=== PATIENT | male | born 1975 | race African-American/Black ===

== ENCOUNTER 2018-09-12 15:49 | Inpatient (IN) | payer OTHER ==
[2018-09-12 18:23] VITALS: BMI 19.8
--- NOTE | 2018-09-12 20:13 | HP ---
CIWA Score Nausea/Vomitin Muscle Tremors: 1-None Visible, but [place] Anxiety: 1-Mildly Anxious Agitation: 4-Moderately Restless Paroxysmal Sweats: No Perspiration Orientation: 2-Disoriented Date<2 days Tacttile Disturbances: 0-None Auditory Disturbances: 0-None Visual Disturbances: 2-Mild Sensitivity Headache: 4-Moderately Severe CIWA-Ar Total Score: 19 - Admission Criteria OAS Guidelines: Admission for Medically Managed Detox: Requires at least one of the followin. CIWA greater than 12 2. Seizures within the past 24 hours 3. Delirium tremens within the past 24 hours 4. Hallucinations within the past 24 hours 5. Acute intervention needed for co occurring medical disorder 6. Acute intervention needed for co occurring psychiatric disorder 7. Severe withdrawal that cannot be handled at a lower level of care (continued vomiting, continued diarrhea, abnormal vital signs) requiring intravenous medication and/or fluids 8. Patient presents the following: CIWA greater than 12 Admission Criteria Met: Admission criteria met Admission ROS [facility] Chief Complaint: C/O WORSENING WITHDRAWAL SX'S. SEEKING DETOX Allergies/Adverse Reactions: Allergies Allergy/AdvReac Type Severity Reaction Status Date / Time No Known Allergies Allergy Verified 09/12/18 18:15 History of Present Illness: 43.Y.O. MALE WITH HX/O ALCOHOLISM HERE FOR DETOX. CLIENT IS REFERRED BY A FRIEND AFTER RELAPSING 1 WEEK AGO. HE STATES HE HAS BEEN ABSTINENT FOR THE PAST 4 MONTHS. FOR THE FPAST 1` WEEK CLINET REPORTS DRINKING A FIFTH OF VODKA DAILY. LAST DRINK 1 DAY AGO. NOW HERE C/O WORSENING WITHDRAWAL SX'S CIWA 19 SEEKING DETOX. "I AM AFRAID zi AM GOING TO HAVE A SEIZURE". HX/O WITHDRAWAL SZ, DENIES DT'S, SI/HI/AVH. LONGEST CLEAN TIME IS THE PAST 4 MONTHS. HE RESIDES AT [facility] RESIDENTIAL [facility], UNEMPLOYED, DENIES LEGALS. PMHX-DENIES PSYCH- DENIES Exam Limitations: No Limitations - Ebola screening Have you traveled outside of the country in the last 21 days: No Have you had contact with anyone from an Ebola affected area: No Do you have a fever: No - Review of Systems Constitutional: Loss of Appetite, Night Sweats, Changes in sleep, Unintentional Wgt. Loss EENT: reports: Dental Problems (MISSING TEETH- PATIAL UPPER DENTURES) Respiratory: reports: No Symptoms reported Cardiac: reports: No Symptoms Reported GI: reports: Poor Appetite, Poor Fluid Intake, Vomiting : reports: No Symptoms Reported Musculoskeletal: reports: No Symptoms Reported Integumentary: reports: No Symptoms Reported Neuro: reports: Headache, Seizure (R/T ALCOHOL WITHDRAWAL), Tremors Endocrine: reports: No Symptoms Reported Hematology: reports: No Symptoms Reported Psychiatric: reports: Agitated (IRRITABLE), Depressed (DENIES SI) Other Systems: Reviewed and Negative Patient History - Patient Medical History Hx Anemia: No Hx Asthma: No Hx Chronic Obstructive Pulmonary Disease (COPD): No Hx Cancer: No Hx Cardiac Disorders: No Hx Congestive Heart Failure: No Hx Hypertension: No Hx Hypercholesterolemia: No Hx Pacemaker: No HX Cerebrovascular Accident: No Hx Seizures: Yes (R/T WITHDRAWAL SZ FROM ALCOHOL 05/2018) Hx Dementia: No Hx Diabetes: No Hx Gastrointestinal Disorders: No Hx Liver Disease: No Hx Genitourinary Disorders: No Hx Sexually Transmitted Disorders: No Hx Renal Disease (ESRD): No Hx Thyroid Disease: No Hx Human Immunodeficiency Virus (HIV): No Hx Hepatitis C: No Hx Depression: No Hx Suicide Attempt: No Hx Bipolar Disorder: No Hx Schizophrenia: No Other Medical History: DENIES - Patient Surgical History Past Surgical History: No - PPD History Previous Implant?: Yes Documented Results: Negative w/o proof Implanted On Prior [facility] Admission?: No PPD to be Administered?: Yes - Smoking Cessation Smoking history: Current every day smoker Have you smoked in the past 12 months: Yes Aproximately how many cigarettes per day: 5 Cigars Per Day: 0 Hx Chewing Tobacco Use: No Initiated information on smoking cessation: Yes 'Breaking Loose' booklet given: 09/12/18 - Substance & Tx. History Hx Alcohol Use: Yes Hx Substance Use: Yes Substance Use Type: Alcohol Hx Substance Use Treatment: Yes ([facility]) - Substances abused Alcohol Substance route: Oral Frequency: Daily Amount used: FIFTH Age of first use: 12 (RELAPSE 1 WEEK AGO AFTER 4 MONTHS CLEAN) Date of last use: 09/12/18 Family Disease History - Family Disease History Family Disease History: Other: Father (ALCOHOLISM), Mother (ALCOHOLISM) Admission Physical Exam [facility] - Vital Signs Vital Signs: Vital Signs - 24 hr 09/12/18 09/12/18 18:15 19:14 Temperature 98.3 F 98.3 F Pulse Rate 88 88 Respiratory 16 16 Rate Blood Pressure 124/73 124/73 - Physical General Appearance: Yes: Mild Distress, Cachetic (FRAIL), Tremorous (FELT), Irritable HEENTM: Yes: EOMI, Normocephalic, Normal Voice, WILLIAM, Pharynx Normal, Other ( POOR DENTITION) Respiratory: Yes: Chest Non-Tender, Lungs Clear, Normal Breath Sounds, No Respiratory Distress, No Accessory Muscle Use Neck: Yes: No masses,lesions,Nodules, Supple, Trachea in good position Breast: Yes: Breast Exam Deferred Cardiology: Yes: Regular Rhythm, S1, S2, Tachycardia Abdominal: Yes: Normal Bowel Sounds, Non Tender, Flat, Soft, Tenderness (LLQ) Genitourinary: Yes: Within Normal Limits Back: Yes: Normal Inspection Musculoskeletal: Yes: full range of Motion, Gait Steady Extremities: Yes: Normal Range of Motion, Non-Tender, Tremors (FELT) Neurological: Yes: Alert, Motor Strength 5/5, Depressed Affect Integumentary: Yes: Dry, Warm Lymphatic: Yes: Within Normal Limits - Diagnostic (1) Alcohol dependence with uncomplicated withdrawal Current Visit: Yes Status: Acute (2) Nicotine dependence Current Visit: Yes Status: Chronic Qualifiers: Nicotine product type: cigarettes Substance use status: uncomplicated Qualified Code(s): F17.210 - Nicotine dependence, cigarettes, uncomplicated (3) At risk for dehydration due to poor fluid intake Current Visit: Yes Status: Acute (4) Alcohol withdrawal seizure Current Visit: Yes Status: Suspected Qualifiers: Complication of substance-induced condition: uncomplicated Qualified Code(s ): F10.230 - Alcohol dependence with withdrawal, uncomplicated Comment: REPORTED HX (5) Depressed affect Current Visit: Yes Status: Acute (6) Homeless Current Visit: Yes Status: Suspected (7) Substance induced mood disorder Current Visit: Yes Status: Acute Cleared for Admission S - Detox or Rehab [facility] Level of Care: Medically Managed Detox Regimen/Protocol: Librium Claeared for Rehab Admission: No Breathalyzer - Breathalyzer Breathalyzer: 0.132 Urine Drug Screen - Test Device Lot number: [id number] Expiration date: 06/12/20 - Control Is test valid?: Yes - Results Drug screen NEGATIVE: Yes Inpatient Rehab Admission - Rehab Decision to Admit Inpatient rehab admission?: No
[2018-09-12] MEDS ORDERED: ACETAMINOPHEN 325 MG TABLET (FP) PO PRN ×2 (20:19)
[2018-09-12] MEDS ORDERED: METHOCARBAMOL 500 MG TABLET PO PRN (20:19)
[2018-09-12] MEDS ORDERED: DICYCLOMINE HCL 10 MG CAPSULE PO PRN (20:19)
[2018-09-12] MEDS ORDERED: chlordiazePOXIDE HCL 10 MG CAPSULE PO PRN (20:19)
[2018-09-12] MEDS ORDERED: ONDANSETRON *ODT* 4 MG TABLET SL PRN (20:19)
[2018-09-12] MEDS ORDERED: NICOTINE POLACRILEX 2 MG GUM BUC PRN (20:19)
[2018-09-12] MEDS ORDERED: P-EPHED 60MG/TRIPROLIDI 2.5MG TABLET PO PRN (20:19)
[2018-09-12] MEDS ORDERED: MAGNESIUM CITRATE 300 ML BOTTLE PO PRN (20:19)
[2018-09-12] MEDS ORDERED: MENTHOL/PHENOL 1 EACH UD MM PRN (20:19)
[2018-09-12] MEDS ORDERED: guaiFENesin 200 MG/10 ML 10 ML UNIT-DOSE CUPS PO PRN (20:19)
[2018-09-12] MEDS ORDERED: MAGNESIUM HYDROX 2400MG/30ML ORAL SUSPENSION 30 ML CUP PO PRN (20:19)
[2018-09-12] MEDS ORDERED: MELATONIN 5 MG TABLETS PO PRN (20:19)
[2018-09-12] MEDS ORDERED: MAG HYDROX/AL HYDROX/SIMETH 30 ML UNIT-DOSE CUP PO PRN (20:19)
[2018-09-12] MEDS ORDERED: IBUPROFEN 400 MG TABLET (FP) PO PRN (20:19)
[2018-09-12] MEDS ORDERED: BISMUTH SUBSALICYLATE 524 MG/30 ML UD PO PRN (20:19)
[2018-09-12] MEDS ORDERED: hydrOXYzine PAMOATE 25 MG CAPSULE (FP) PO PRN (20:19)
[2018-09-12] MEDS: THIAMINE HCL 100 MG TABLET (FP) PO SCH (21:37)
[2018-09-12] MEDS: chlordiazePOXIDE HCL 25 MG CAPSULE PO SCH (21:38)
[2018-09-13] MEDS: chlordiazePOXIDE HCL 25 MG CAPSULE PO SCH ×3 (06:04→22:05)
[2018-09-13] MEDS ORDERED: PRENATAL VITAMINS W/ FOLIC ACID TABLET (FP) PO SCH (10:00)
[2018-09-13] MEDS ORDERED: NICOTINE 14 MG/24 HOURS TOPICAL PATCH TD SCH (10:00)
[2018-09-13 11:54] LABS: HEMATOCRIT 37.8 % (35.4-49); HEMOGLOBIN 12.7 GM/dL (11.7-16.9); MCH 30.2 pg (25.7-33.7); MCHC 33.7 g/dl (32.0-35.9); MEAN CELL VOLUME 89.6 fl (80-96); MEAN PLT VOLUME 7.8 fl (7.5-11.1); PLATELET COUNT 294 K/MM3 (134-434); RBC 4.22 M/mm3 (4.00-5.60)
[2018-09-13 12:09] LABS: ALBUMIN 3.7 g/dl (3.4-5.0); BILIRUBIN,TOTAL 0.7 mg/dL (0.2-1); BLOOD UREA NITROGEN 11.7 mg/dL (7-18); CALCIUM 8.8 mg/dL (8.5-10.1); CREATININE 0.8 mg/dL (0.55-1.3); POTASSIUM 3.9 mmol/L (3.5-5.1)
--- NOTE | 2018-09-13 14:15 | EKG ---
Test Reason : Blood Pressure : / mmHG Vent. Rate : 081 BPM Atrial Rate : 081 BPM P-R Int : 160 ms QRS Dur : 106 ms QT Int : 340 ms P-R-T Axes : 064 -08 058 degrees QTc Int : 394 ms SINUS RHYTHM WITH MARKED SINUS ARRHYTHMIA OTHERWISE NORMAL ECG NO PREVIOUS ECGS AVAILABLE Confirmed by JUAN MIGUEL HANNAH, RU ([id number]) on 09/13/2018 2:15:40 PM Referred By: Confirmed By:RU BULLARD MD
--- NOTE | 2018-09-13 14:35 | PN ---
S CIWA - CIWA Score Nausea/Vomitin-Mild Nausea/No Vomiting Muscle Tremors: 3 Anxiety: 3 Agitation: 3 Paroxysmal Sweats: 1-Minimal Palms Moist Orientation: 0-Oriented Tacttile Disturbances: 1-Very Mild Itch/Numbness Auditory Disturbances: 0-None Visual Disturbances: 0-None Headache: 2-Mild CIWA-Ar Total Score: 14 S Progress Note (SOAP) Subjective: 43 years old male admitted on 09/12/18 for acute alcohol withdrawal sx management doing well with librium detox regimen feeling better today less tremor ambulating on hallway social with peers in day room discuss aftercare the he will return to his residential facility for alcohol recovery Objective: 09/13/18 14:37 Vital Signs Temperature 98.6 F 09/13/18 13:05 Pulse Rate 96 H 09/13/18 13:05 Respiratory Rate 18 09/13/18 13:05 Blood Pressure 131/76 09/13/18 13:05 O2 Sat by Pulse Oximetry (%) Laboratory Last Values WBC 6.0 K/mm3 (4.0-10.0) 09/13/18 07:30 RBC 4.22 M/mm3 (4.00-5.60) 09/13/18 07:30 Hgb 12.7 GM/dL (11.7-16.9) 09/13/18 07:30 Hct 37.8 % (35.4-49) 09/13/18 07:30 MCV 89.6 fl (80-96) 09/13/18 07:30 MCH 30.2 pg (25.7-33.7) 09/13/18 07:30 MCHC 33.7 g/dl (32.0-35.9) 09/13/18 07:30 RDW 14.0 % (11.9-15.9) 09/13/18 07:30 Plt Count 294 K/MM3 (134-434) 09/13/18 07:30 MPV 7.8 fl (7.5-11.1) 09/13/18 07:30 Sodium 145 mmol/L (136-145) 09/13/18 07:30 Potassium 3.9 mmol/L (3.5-5.1) 09/13/18 07:30 Chloride 108 mmol/L (98-107) H 09/13/18 07:30 Carbon Dioxide 30 mmol/L (21-32) 09/13/18 07:30 Anion Gap 7 MMOL/L (8-16) L 09/13/18 07:30 BUN 11.7 mg/dL (7-18) 09/13/18 07:30 Creatinine 0.8 mg/dL (0.55-1.3) 09/13/18 07:30 Est GFR (CKD-EPI)AfAm 125.92 09/13/18 07:30 Est GFR (CKD-EPI)NonAf 108.65 09/13/18 07:30 Random Glucose 79 mg/dL (74-106) 09/13/18 07:30 Calcium 8.8 mg/dL (8.5-10.1) 09/13/18 07:30 Total Bilirubin 0.7 mg/dL (0.2-1) 09/13/18 07:30 AST 23 U/L (15-37) 09/13/18 07:30 ALT 25 U/L (13-61) 09/13/18 07:30 Alkaline Phosphatase 95 U/L (45-117) 09/13/18 07:30 Total Protein 7.0 g/dl (6.4-8.2) 09/13/18 07:30 Albumin 3.7 g/dl (3.4-5.0) 09/13/18 07:30 RPR Titer Nonreactive (NONREACTIVE) 09/13/18 07:30 lab noted Assessment: 09/13/18 14:37 alcohol withdrawal sx Plan: continue alcohol detox
--- NOTE | 2018-09-13 16:09 | CONSULT ---
[facility] Psychiatric Consult - Data Date of interview: 09/13/18 Identifying data: Rod Buster Helper approached for psychiatric consultation. 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 I do not take psych medications." Psychiatric consultation refused.
[2018-09-13] MEDS: THIAMINE HCL 100 MG TABLET (FP) PO SCH (22:05)
[2018-09-14 00:53] LABS: EPI CELLS 3.3 /HPF (0-5/HPF); HYALINE CASTS 11 /lpf (0-8); PH,URINE >= 9.0 (5.0-8.0); URINE APPEARANCE CLOUDY; URINE BACTERIA 1.7 /hpf (NEGATIVE); URINE BILIRUBIN NEGATIVE (NEGATIVE); URINE COLOR YELLOW; URINE GLUCOSE (UA) NEGATIVE (NEGATIVE); URINE KETONE NEGATIVE (NEGATIVE); URINE LEUK ESTERASE NEGATIVE (NEGATIVE); URINE NITRITE NEGATIVE (NEGATIVE); URINE PROTEIN 2+ (NEGATIVE); URINE WBC 1 /hpf (0-5)
[2018-09-14 02:42] LABS: URINE RBC 3 /hpf (0-4); YEAST 1+ (NEGATIVE)
[2018-09-14] MEDS ORDERED: chlordiazePOXIDE 5 MG CAPSULE PO SCH (05:00)
[2018-09-14 09:50] VITALS: BP 119/69; PULSE 93; TEMP 97.2
--- NOTE | 2018-09-14 18:53 | PN ---
S CIWA - CIWA Score Nausea/Vomitin-No Nausea/No Vomiting Muscle Tremors: 2 Anxiety: 0-No Anxiety, at Ease Agitation: 1-Slight > Activity Paroxysmal Sweats: 2 Orientation: 0-Oriented Tacttile Disturbances: 1-Very Mild Itch/Numbness Auditory Disturbances: 0-None Visual Disturbances: 0-None Headache: 0-None Present CIWA-Ar Total Score: 6 BHS Progress Note (SOAP) Subjective: Sweating, Tremors. Objective: PATIENT A & O X 3, OBSERVED AMBULATING ON UNIT UNASSISTED. IN NO ACUTE DISTRESS. 09/14/18 18:54 Vital Signs Temperature 97.2 F L 09/14/18 09:50 Pulse Rate 93 H 09/14/18 09:50 Respiratory Rate 18 09/14/18 09:50 Blood Pressure 119/69 09/14/18 09:50 O2 Sat by Pulse Oximetry (%) Laboratory Tests 09/13/18 09/13/18 09/13/18 07:30 07:30 07:30 WBC 6.0 RBC 4.22 Hgb 12.7 Hct 37.8 MCV 89.6 MCH 30.2 MCHC 33.7 RDW 14.0 Plt Count 294 MPV 7.8 Sodium 145 Potassium 3.9 Chloride 108 H Carbon Dioxide 30 Anion Gap 7 L BUN 11.7 Creatinine 0.8 Est GFR (CKD-EPI)AfAm 125.92 Est GFR (CKD-EPI)NonAf 108.65 Random Glucose 79 Calcium 8.8 Total Bilirubin 0.7 AST 23 ALT 25 Alkaline Phosphatase 95 Total Protein 7.0 Albumin 3.7 Urine Color Urine Appearance Urine pH Ur Specific [place] Urine Protein Urine Glucose (UA) Urine Ketones Urine Blood Urine Nitrite Urine Bilirubin Urine Urobilinogen Ur Leukocyte Esterase Urine WBC (Auto) Urine RBC (Auto) Urine Casts (Auto) U Epithel Cells (Auto) Urine Bacteria (Auto) Urine Yeast (Auto) RPR Titer Nonreactive 09/13/18 14:37 WBC RBC Hgb Hct MCV MCH MCHC RDW Plt Count MPV Sodium Potassium Chloride Carbon Dioxide Anion Gap BUN Creatinine Est GFR (CKD-EPI)AfAm Est GFR (CKD-EPI)NonAf Random Glucose Calcium Total Bilirubin AST ALT Alkaline Phosphatase Total Protein Albumin Urine Color Yellow Urine Appearance Cloudy Urine pH >= 9.0 H Ur Specific [place] 1.033 Urine Protein 2+ H Urine Glucose (UA) Negative Urine Ketones Negative Urine Blood Negative Urine Nitrite Negative Urine Bilirubin Negative Urine Urobilinogen 1.0 Ur Leukocyte Esterase Negative Urine WBC (Auto) 1 Urine RBC (Auto) 3 Urine Casts (Auto) 11 U Epithel Cells (Auto) 3.3 Urine Bacteria (Auto) 1.7 Urine Yeast (Auto) 1+ RPR Titer LABS NOTED. RESULTS OF DETOX ADMISSION QFT /TB TEST PENDING. 09/14/18 18:54 Assessment: 09/14/18 18:55 COMPLETION OF DETOX REGIMEN. Plan: REPORTS THAT HE IS TOLERATING CURRENT WITHDRAWAL / DETOX SYMPTOMS RELATIVELY WELL. AT PATIENT'S REQUEST, HE WAS GRANTED AN EARLY DISCHARGE FROM DETOX UNIT TODAY SO THAT HE MAY ATTEND TO FAMILY/PERSONAL MATTERS. PATIENT WILL RETURN TO ' [facility], WHERE HE HAS PREVIOUSLY BEEN A CLIENT, FOR AFTERCARE.
--- NOTE | 2018-09-14 19:00 | DS ---
[facility] Detox Discharge Summary Admission Date: 09/12/18 - History Present History: Alcohol Dependence Additional Comments: PATIENT REPORTS THAT CURRENT WITHDRAWAL / DETOX SYMPTOMS ARE MINIMAL IN DEGREE AND THAT HE FEELS WELL OVERALL AT TIME OF DISCHARGE FROM DETOX UNIT. PATIENT WILL RETURN TO 'THE [facility] INPATIENT PROGRAM, WHERE HE HAS PREVIOUSLY BEEN A CLIENT, FOR AFTERCARE. PATIENT WAS DISCHARGED FROM DETOX UNIT IN STABLE MEDICAL CONDITION. Pertinent Past History: Nicotine Dependence, History Of Seizures (Due to Alcohol Withdrawal). - Physical Exam Results Vital Signs: Vital Signs Temperature 97.2 F L 09/14/18 09:50 Pulse Rate 93 H 09/14/18 09:50 Respiratory Rate 18 09/14/18 09:50 Blood Pressure 119/69 09/14/18 09:50 O2 Sat by Pulse Oximetry (%) Pertinent Admission Physical Exam Findings: WITHDRAWAL SYMPTOMS. Laboratory Tests 09/13/18 09/13/18 09/13/18 07:30 07:30 07:30 WBC 6.0 RBC 4.22 Hgb 12.7 Hct 37.8 MCV 89.6 MCH 30.2 MCHC 33.7 RDW 14.0 Plt Count 294 MPV 7.8 Sodium 145 Potassium 3.9 Chloride 108 H Carbon Dioxide 30 Anion Gap 7 L BUN 11.7 Creatinine 0.8 Est GFR (CKD-EPI)AfAm 125.92 Est GFR (CKD-EPI)NonAf 108.65 Random Glucose 79 Calcium 8.8 Total Bilirubin 0.7 AST 23 ALT 25 Alkaline Phosphatase 95 Total Protein 7.0 Albumin 3.7 Urine Color Urine Appearance Urine pH Ur Specific [place] Urine Protein Urine Glucose (UA) Urine Ketones Urine Blood Urine Nitrite Urine Bilirubin Urine Urobilinogen Ur Leukocyte Esterase Urine WBC (Auto) Urine RBC (Auto) Urine Casts (Auto) U Epithel Cells (Auto) Urine Bacteria (Auto) Urine Yeast (Auto) RPR Titer Nonreactive 09/13/18 14:37 WBC RBC Hgb Hct MCV MCH MCHC RDW Plt Count MPV Sodium Potassium Chloride Carbon Dioxide Anion Gap BUN Creatinine Est GFR (CKD-EPI)AfAm Est GFR (CKD-EPI)NonAf Random Glucose Calcium Total Bilirubin AST ALT Alkaline Phosphatase Total Protein Albumin Urine Color Yellow Urine Appearance Cloudy Urine pH >= 9.0 H Ur Specific [place] 1.033 Urine Protein 2+ H Urine Glucose (UA) Negative Urine Ketones Negative Urine Blood Negative Urine Nitrite Negative Urine Bilirubin Negative Urine Urobilinogen 1.0 Ur Leukocyte Esterase Negative Urine WBC (Auto) 1 Urine RBC (Auto) 3 Urine Casts (Auto) 11 U Epithel Cells (Auto) 3.3 Urine Bacteria (Auto) 1.7 Urine Yeast (Auto) 1+ RPR Titer LABS NOTED. - Treatment Hospital Course: Detox Protocol Followed, Detoxed Safely, Responded well, Discharged Condition Good Patient has Accepted a Rehab Referral to: PATIENT RETURNING TO THE [facility]. - Medication Discharge Medications: Ambulatory Orders NK [No Known Home Medication] 09/12/18 - Diagnosis (1) Alcohol dependence with uncomplicated withdrawal Status: Acute (2) At risk for dehydration due to poor fluid intake Status: Acute (3) Depressed affect Status: Acute (4) Substance induced mood disorder Status: Acute (5) Nicotine dependence Status: Chronic Qualifiers: Nicotine product type: cigarettes Substance use status: uncomplicated Qualified Code(s): F17.210 - Nicotine dependence, cigarettes, uncomplicated (6) Alcohol withdrawal seizure Status: Suspected Qualifiers: Complication of substance-induced condition: uncomplicated Qualified Code(s ): F10.230 - Alcohol dependence with withdrawal, uncomplicated (7) Homeless Status: Suspected - AMA Did Patient Leave Against Medical Advice: No
[2018-09-15] MEDS ORDERED: chlordiazePOXIDE HCL 10 MG CAPSULE PO PRN
[2018-09-15] MEDS ORDERED: chlordiazePOXIDE HCL 10 MG CAPSULE PO SCH (05:00)
[2018-09-16] MEDS ORDERED: chlordiazePOXIDE HCL 10 MG CAPSULE PO ONE (05:00)
== END 2018-09-14 09:25 | disposition home or self-care (01) | DRG 775 ==
LOC: YASAS 15:49 → Y3N 20:12
PROVIDERS: ADMIT Surgery; ATTEND Surgery
PROC: HZ2ZZZZ Detoxification Services for Substance Abuse Treatment (ICD-10-PCS; principal; 2018-09-12)
DX: F10.230 Alcohol dependence with withdrawal, uncomplicated (principal); F17.210 Nicotine dependence, cigarettes, uncomplicated; F19.24 Other psychoactive substance dependence with psychoactive substance-induced mood disorder; R45.89 Other symptoms and signs involving emotional state; Z91.19 Patient's noncompliance with other medical treatment and regimen; Z86.69 Personal history of other diseases of the nervous system and sense organs; Z59.0 Homelessness
CPT/HCPCS: 36415; 80053; 81003; 85027; 86480; 86593; 93005; 93010

== ENCOUNTER 2021-08-12 08:19 | Emergency (ER) | payer OTHER ==
[2021-08-12 08:40] VITALS: BMI 21.0
[2021-08-12] MEDS ORDERED: SODIUM CHLORIDE 0.9% 500 ML INFUS.BAG IV ONE (09:21)
[2021-08-12] MEDS ORDERED: ACETAMINOPHEN 1000 MG/100 ML BAG IVPB ONE (09:21)
[2021-08-12] MEDS ORDERED: METOCLOPRAMIDE HCL INJECTION 10 MG/2 ML VIAL IVPUSH ONE (09:23)
[2021-08-12] MEDS ORDERED: chlordiazePOXIDE HCL 25 MG CAPSULE PO ONE (09:37)
[2021-08-12] MEDS ORDERED: chlordiazePOXIDE HCL 25 MG CAPSULE ONE (09:55)
[2021-08-12 10:07] LABS: BASO % 0.4 % (0-2.0); EOS % 0.2 % (0-4.5); HEMATOCRIT 40.6 % (35.4-49); HEMOGLOBIN 13.8 GM/dL (11.7-16.9); LYMPH % 19.1 % (8-40); MCH 32.3 pg (25.7-33.7); MCHC 34.1 g/dl (32.0-35.9); MEAN CELL VOLUME 94.7 fl (80-96); MEAN PLT VOLUME 7.5 fl (7.5-11.1); MONO % 8.5 % (3.8-10.2); NEUT % 71.8 % (42.8-82.8); PLATELET COUNT 265 10^3/uL (134-434); RBC 4.29 M/mm3 (4.00-5.60); RDW 13.8 % (11.9-15.9); WHITE BLOOD COUNT 9.2 K/mm3 (4.0-10.0)
[2021-08-12] MEDS ORDERED: ACETAMINOPHEN INJECTION 100 ML IVPB ONE (10:18)
[2021-08-12] MEDS ORDERED: METOCLOPRAMIDE HCL INJECTION 10 MG/2 ML VIAL ONE (10:18)
[2021-08-12 10:20] LABS: CALCIUM 9.7 mg/dL (8.5-10.1)
[2021-08-12 10:21] LABS: ALBUMIN 4.4 g/dl (3.4-5.0); BLOOD UREA NITROGEN 13.3 mg/dL (7-18); MAGNESIUM 2.2 mg/dL (1.8-2.4)
[2021-08-12 10:24] LABS: CREATININE 0.8 mg/dL (0.55-1.3)
[2021-08-12 10:25] LABS: BILIRUBIN,TOTAL 0.7 mg/dL (0.2-1)
[2021-08-12 10:26] LABS: TOT PROT 8.2 g/dl (6.4-8.2)
[2021-08-12 13:08] VITALS: BP 105/67; PULSE 90; TEMP 98
== END 2021-08-12 13:10 | disposition home or self-care (01) ==
LOC: JER 08:19
PROC: 3E0333Z Introduction of Anti-inflammatory into Peripheral Vein, Percutaneous Approach (ICD-10-PCS; principal; 2021-08-12)
PROC: 3E033GC Introduction of Other Therapeutic Substance into Peripheral Vein, Percutaneous Approach (ICD-10-PCS; 2021-08-12)
DX: F10.129 Alcohol abuse with intoxication, unspecified (principal)
CPT/HCPCS: 0241U-QW; 36415; 70450-TC; 71045-TC-FY; 72125-TC; 80053; 83735; 84484; 85025; 93005; 93010; 99285-25